=== PATIENT | male | born 1965 | race Two or more races ===

== ENCOUNTER 2019-02-16 10:10 | Outpatient (CLI) | payer OTHER ==
[~2019-02-16] VITALS: Ht 170.2 cm; Wt 98.0 kg
== END 2019-02-16 10:30 | disposition home or self-care (01) ==
LOC: OFIC 805 10:10
DX: D11.0 Benign neoplasm of parotid gland (principal)

== ENCOUNTER 2019-03-16 07:47 | Outpatient (CLI) | payer OTHER | END 2019-03-16 11:26 | disposition home or self-care (01) | LOC: SONOGRAMA 07:47 | DX: K11.8 Other diseases of salivary glands (principal) ==

== ENCOUNTER 2019-06-14 08:15 | Outpatient (CLI) | payer OTHER ==
[~2019-06-14] VITALS: Ht 152.4 cm; Wt 95.3 kg
== END 2019-06-14 08:45 | disposition home or self-care (01) ==
LOC: OFIC 805 08:15
DX: C07 Malignant neoplasm of parotid gland (principal); R22.1 Localized swelling, mass and lump, neck; J31.0 Chronic rhinitis

== ENCOUNTER 2019-10-19 10:53 | Outpatient (CLI) | payer OTHER ==
[~2019-10-19] VITALS: Ht 152.4 cm; Wt 93.0 kg
== END 2019-10-19 17:42 | disposition home or self-care (01) ==
LOC: OFIC 805 10:53
DX: J31.0 Chronic rhinitis (principal); R22.1 Localized swelling, mass and lump, neck; D11.0 Benign neoplasm of parotid gland